=== PATIENT | female | born 1985 | race Caucasian/White ===

== ENCOUNTER 2025-05-05 10:53 | Outpatient (REF) | payer OTHER, MEDICAID, SELFPAY ==
--- NOTE | ~2025-05-05 | XR_ITS ---
CLINICAL HISTORY: M25.551 - Pain in right hip Single lateral views right hip. Single AP pelvis. Comparison: None Findings: No fractures, subluxations or dislocations. Normal congruency of the hip joint. SI joints pubic rami and symphysis pubis intact. Superior acetabular spurs bilaterally. No femoral bump. Bone mineralization and soft tissues within normal limits. No radiopaque foreign body. Impression: 1. Superior acetabular spurs bilaterally. This document has been electronically signed by: Asher Niño MD on 05/06/2025 12:49:11
--- OUTSIDE RECORDS SUMMARY | 2025-05-05 13:32 | XMS_ITS | Clinical Summary ---
Author Organization [facility] ity Address [address] [place] [address] Care Team Providers Care Payloader Machine Operator Name Role Phone Martita Patiño MD Primary Care Provider [phone] Allergies No known active allergies Medications fluticasone propionate (FLONASE NASL) by Nasal route. Active levonorgestrel-e thinyl estradiol (AVIANE,ALESSE) 0.1-20 mg-mcg per tablet Take 1 tablet by mouth daily. 09/11/2019 Active Active Problems Problem Noted Date Diagnosed Date Abnormal Pap smear of cervix 08/02/2021 Overview (08/05/2024): 08/03 ASCUS negative HPV Migraine 09/09/2008 Tobacco use disorder 08/31/2007 Neck pain 07/11/2007 Lumbago 02/22/2006 Immunizations Name Administration Dates Next Due DTP 02/20/1990, 7,08/14/1985,1984,01/12/1985 [id number] (Pentacel) 2mo to less than 5yo 06/11/1987 Hepatitis B (Qqjfuxl-N-Smmcl , Recombivax HB-Adult) 19yo and older 06/12/1998,12/12/1996,12/07/1996 Influenza Quadravalent, MDCK , 0.5ml, with preservative (Flucelvax) 6mo and older 07/28/2017 Influenza trivalent, with preservative (Fluzone; Afluria) 6mo and older 08/06/2014 MMR, measles mumps and rubel la Live (Priorix; M-M-R II) 12mo and older 01/12/1995,04/24/1986 OPV 02/20/1990, 7,08/14/1985,1984,01/12/1985 PPD Test 08/04/2014,05/27/2014 Td Tetanus diptheria (Tdvax) 7yo and older 07/01/1998 Tdap Tetanus diptheria acell ular pertussis (Boostrix; Adacel) 7yo and older 05/27/2014 Varicella live (Varivax) 12m o and older 08/14/1989 Surgical History Surgery Date Site/Laterality Comments KNEE ARTHROSCOPY PROCEDURE: SC ARTHROSCOPY AID TX SPINE&/FX KNEE W/O FIXJ; COMMENT: 3 years ago, L knee WISDOM TOOTH EXTRACTION PROCEDURE: HISTORICAL WISDOM TEETH EXTRACTION; COMMENT: age 18 FLEXIBLE SIGMOIDOSCOPY 09/25/2014 PROCEDURE: SC SIGMOIDOSCOPY FLX DX W/COLLJ SPEC BR/WA IF PFRMD; COMMENT: hemorrhoids Medical History Medical History Date Comments Lumbago 02/22/2006 DX:Lumbago Depression DX:Depression Abnormal Pap smear of cervix 08/02/2021 DX: Abnormal Pap smear of cervix; COMMENT: 08/03 ASCUS negative HPV Family History Medical History Relation Name Comments Other: MS Brother 1 Diabetes Father HTN, CABG, CAD Other cancer Maternal Grandfather leukemi a, cataracts Ovarian cancer Maternal Grandmother brain aneurism Arthritis Mother BRCA neg Other cancer Paternal Grandfather lymphom a Blindness Neg Hx Glaucoma Neg Hx Macular degeneration Neg Hx Strabismus Neg Hx Relation Name Status Comments Brother 1 Brother 2 Alive Brother 3 Alive Father Alive Maternal Grandfather Maternal Grandmother Mother Alive Paternal Grandfather Paternal Grandmother Social History Tobacco Use Types Packs/Day Years Used Date Smoking Tobacco: Every Day Cigarettes Smokeless Tobacco: Current Alcohol Use Standard Drinks/Week Comments Yes 0 (1 standard drink = 0.6 oz pur e alcohol) Comments Unknown Sex and Gender Information Value Date Recorded Sex Assigned at Not on file Legal Sex Female 7:36 PM EST Gender Identity Not on file Sexual Orientation Not on file Obstetrics History Plan of Treatment Health Maintenance Due Date Last Done Comments Breast Cancer Screening 1984 Pneumococcal Vaccine: Pediatrics (0 to 5 Years) and At-Risk Patients (6 to 49 Years) (1 of 2 - PCV) 11/04/2003 Social Influencers of Health Screening 07/16/2022 DTaP,Tdap,and Td Vaccines (8 - Td or Tdap) 05/27/2024 05/27/2014, 07/01/1998, 02/20/1990, Additional history exists Depression Screening 08/14/2024 COVID-19 Vaccine ( season) 2025 Influenza Vaccine (#1) 2025 07/28/2017, 2013 Cervical Cancer Screening: HPV 07/23/2026 07/23/2021 HIB Vaccines Completed 06/11/1987 Varicella Vaccines Aged Out 08/14/1989 No longer eligible based on patient's age to complete this topic IPV Vaccines Completed 02/20/1990, 05/15, 09/14/1986, Additional history exists MMR Vaccines Completed 01/12/1995, 04/24/1986 Hepatitis B Vaccines Completed 06/12/1998, 12/12/1996, 12/07/1996 Hepatitis C Screening Completed 08/19/2002 HIV Screening Completed 08/05/2008 HPV Vaccines Aged Out No longer eligi ble based on patient's age to complete this topic Hepatitis A Vaccines Aged Out No long er eligible based on patient's age to complete this topic Meningococcal ACWY Vaccine Aged Out N o longer eligible based on patient's age to complete this topic Meningococcal B Vaccine Aged Out No l onger eligible based on patient's age to complete this topic RSV Immunization Patients Under 20 months Aged Out No longer eligible based on patient's age to complete this topic Procedures Procedure Name Priority Date/Time Associated Diagnosis Comments HPV Routine 07/23/2021 HIV SCREENING Routine 08/05/2008 HEPATITIS C SCREENING Routine 08/19/2002 from Last 3 Months or Most Recently Relevant to Health Maintenance Results * Cervical Cancer Screening: HPV (07/23/2021) Cervical Cancer Screening: HPV positive, abstracted Historical Provider MD HEALTH MAINTENANCE Final Result * HIV Screening (08/05/2008) HIV Screening abstracted us Historical Provider HEALTH MAINTENANCE Final Result * Hepatitis C Screening (08/19/2002) Hepatitis C Screening abstracted us Historical Provider HEALTH MAINTENANCE Final Result from Last 3 Months or Most Recently Relevant to Health Maintenance Care Teams Payloader Machine Operator Relationship Specialty Start Date End Date Martita Patiño MD [address] [place] [address] PCP - General Internal Medicine 06/18/21
--- OUTSIDE RECORDS SUMMARY | 2025-05-05 13:32 | XMS_ITS | Clinical Summary ---
Author Organization [facility] Address [address] [place] [address] Care Team Providers Care Public Records Officer Name Role Phone Nathalia Palacios DO Primary Care P rovider Allergies No known active allergies Medications Medication Sig Dispensed Refills Start Date End Date Status meloxicam (MOBIC) 15 MG tablet Take 1 tablet (15 mg total) by mouth daily. 30 tablet 1 05/21/2019 Active methylPREDNISolone (MEDROL DOSEPACK) 4 MG tablet follow package directions 21 tablet 0 11/11/2020 Active azithromycin (Zithromax Z-Feroz) 250 MG tablet Take as directed on package 6 tablet 0 12/14/2021 Active predniSONE (DELTASONE) tablet 10 mg Start 5 tabs (Day 1), Then 4 Tabs (Day 2 ), then 3 Tabs (Day 3), then 2 Tabs (Day 4), Then 1 Tabs (Day 5) 15 tablet 0 12/15/2021 Active cyclobenzaprine (FLEXERIL) 10 MG tablet TAKE 1 TABLET BY MOUTH THREE TIMES A DAY NEEDED FOR MUSCLE SPASMS Strength: 10 mg 90 tablet 1 06/02/2022 Active amoxicillin (AMOXIL) 500 MG tablet Take 1 tablet (500 mg total) by mouth 3 (three) times a day. 21 tablet 0 09/30/2022 Active Social History Tobacco Use Types Packs/Day Years Used Date Smoking Tobacco: Never Assessed Sex and Gender Information Value Date Recorded Sex Assigned at Not on file Gender Identity Not on file Sexual Orientation Not on file Plan of Treatment Health Maintenance Due Date Last Done Comments Hepatitis B Vaccines (1 of 3 - 3-dose series) 1984 Hepatitis C Screening 1984 COVID-19 Vaccine (#1) 05/06/1985 Depression Screening 1996 Preventative Health Evaluation 2002 DTap / Tdap / Td (1 - Tdap) 11/04/2003 Cervical Cancer Screening (P ap Smear) 2005 Influenza Vaccine (#1) 2025 07/02/2021 Pneumococcal Vaccine Aged Out No long er eligible based on patient's age to complete this topic RSV Ped < 20 months Aged Out No longe r eligible based on patient's age to complete this topic Care Teams Public Records Officer Relationship Specialty Start Date End Date Nathalia Palacios DO PCP - General Mold Cleaner 07/12/17
== END 2025-05-05 10:54 | disposition home or self-care (01) ==
LOC: HO.HOSX 10:53
PROVIDERS: Visit Provider Orthopaedic Surgery
DX: M25.551 Pain in right hip (principal)
CPT/HCPCS: 73502

== ENCOUNTER → 2025-05-05 10:55 | Outpatient (BNV) | payer OTHER, MEDICAID, SELFPAY | PROVIDERS: Visit Provider Radiology Diagnostic Radiology | DX: M25.551 Pain in right hip (principal) | CPT/HCPCS: 73502 ==

== ENCOUNTER 2025-05-05 10:58 | Outpatient (AMB) | payer OTHER, MEDICAID, SELFPAY ==
--- NOTE | 2025-05-05 11:06 | A.OFFVIS_ITS ---
Intake Visit Reasons: Right hip pain Intake Note: Jody is a 39 year old female who presents today as a new patient for her right hip pain. The patient describes her hip pain as achy in nature. Most of the pain is along the anterior aspect of her right hip. She denies any numbness or tingling in either of her lower extremities. She did aggravate her hip recently by walking quite a bit at the [place] Physical Exam Const Other: Well-nourished well-developed very friendly female awake alert and oriented x3 in no acute distress Extrem Other: Right hip examination shows almost full range of motion when compared to her left hip, minimal tenderness over her bursa, increased discomfort with forward flexion and internal rotation Results Reviewed Results Reviewed: X-rays of the patient's right hip show mild diffuse joint space narrowing, no acute bony abnormalities Assessment & Plan Assessment & Plan (1) Right hip pain: Code(s): M25.551 - Pain in right hip Category: Medical Plan Ms. Hicks presents with intermittent right hip pain due to muscle strain versus possible labral tear. I had a lengthy discussion with the patient regarding the treatment options. She wishes to hold off on formal physical therapy for now. Activity modifications were discussed at length with the patient. I did give her a prescription for a Medrol Dosepak. She will follow up with me on an as- needed basis should her symptoms not plateau at an unacceptable level over the next few months. I spent 20 minutes in reviewing the patient's records and imaging studies, seeing the patient and documenting in the medical record. Orders: Orders XR hip RT min 2V Today M25.551 - Pain in right hip Medications: New methylprednisolone (Medrol (Feroz)) PO PER PKG DIR 21 ea 0RF Coding Level of Care Code New Pt Level 3 (92977) Complex EM visit Add On G2211 Diagnoses Right hip pain M25.551
== END 2025-05-05 11:16 | disposition home or self-care (01) ==
LOC: HO.HOS 10:59
PROVIDERS: Visit Provider Orthopaedic Surgery
DX: M25.551 Pain in right hip (principal)
CPT/HCPCS: 99203